=== PATIENT | male | born 1985 | race Two or more races ===

== ENCOUNTER 2020-12-18 19:16 | Emergency (ER) | payer BC ==
[~2020-12-18] VITALS: Ht 170.2 cm; Wt 80.9 kg
[2020-12-18 19:45] VITALS: BP 148/45
[2020-12-18] MEDS ORDERED: IBUPROFEN 400 MG TABLET. PO ONE (21:00)
[2020-12-18] MEDS ORDERED: ACETAMINOPHEN 500 MG TABLET PO ONE (21:00)
[2020-12-18] MEDS ORDERED: SMZ/TMP 800/160MG TABLET. PO ONE (21:00)
--- NOTE | 2020-12-18 21:20 | PHYS DOC ---
Adult General Chief Complaint Chief Complaint: LACERATION/AVULSION HPI HPI Patient is a 35 year old male who denies Past med history presenting emergency department for new onset of left-sided thumb laceration. Patient states this morning is attempting to open a can when he slipped with a small knife and states that he cut inner side of the left thumb. Occurred approximate 9 AM this morning. Has not taken any pain medication. Patient is concerned that he is noted worsening swelling to the area. States he has some numbness in the distal portion of the thumb. Denies any additional injury Review of Systems Review of Systems Constitutional: Denies fever or chills [] Eyes: Denies change in visual acuity, redness, or eye pain [] HENT: Denies nasal congestion or sore throat [] Respiratory: Denies cough or shortness of breath [] Cardiovascular: No additional information not addressed in HPI [] GI: Denies abdominal pain, nausea, vomiting, bloody stools or diarrhea [] : Denies dysuria or hematuria [] Musculoskeletal: Denies back pain or joint pain [] Integument: Denies rash or skin lesions [] Neurologic: Denies headache, focal weakness or sensory changes [] Endocrine: Denies polyuria or polydipsia [] All other systems were reviewed and found to be within normal limits, except as documented in this note. Current Medications Current Medications Current Medications Medications (Trade) Dose Ordered Sig/Hector Start Time Stop Time Status Last Admin Dose Admin Acetaminophen (Tylenol) 1,000 mg 1X ONCE 12/18/20 21:00 4 21:01 UNV Ibuprofen (Motrin) 800 mg 1X ONCE 12/18/20 21:00 12/18/20 21:01 UNV Trimethoprim/ Sulfamethoxazole (Bactrim Ds) 1 tab 1X ONCE 12/18/20 21:00 12/18/20 21:01 UNV Physical Exam Physical Exam Constitutional: Well developed, well nourished, no acute distress, non-toxic appearance. [] HENT: Normocephalic, atraumatic, bilateral external ears normal, oropharynx moist, no oral exudates, nose normal. [] Eyes: PERRLA, EOMI, conjunctiva normal, no discharge. [] Neck: Normal range of motion, no tenderness, supple, no stridor. [] Cardiovascular:Heart rate regular rhythm, no murmur [] Lungs & Thorax: Bilateral breath sounds clear to auscultation [] Abdomen: Bowel sounds normal, soft, no tenderness, no masses, no pulsatile masses. [] Skin: Warm, dry, no erythema, no rash. [] Back: No tenderness, no CVA tenderness. [] Extremities: Small approximate 1 cm laceration to the ventral surface of the left thumb with moderate edema and tenderness over the thenar eminence, no cyanosis, no clubbing, ROM intact, no edema. [] Neurologic: Alert and oriented X 3, normal motor function, normal sensory function, no focal deficits noted. [] Psychologic: Affect normal, judgement normal, mood normal. [] EKG EKG [] Radiology/Procedures Radiology/Procedures [] Course & Med Decision Making Course & Med Decision Making Pertinent Labs and Imaging studies reviewed. (See chart for details) 35-year-old male presenting with a laceration to the left thumb but there is some swelling and tenderness that does raise concern for introduction of an infection or injury to the bone. Will prescribe medications, antibiotics and obtain an x-ray to make sure there is no underlying issue and if this is negative will discharge patient home after laceration repair with a course of antibiotics. Patient eloped from the emergency department before receiving any medications, diagnostic studies or further evaluation and discharge. Dragon Disclaimer Dragon Disclaimer This electronic medical record was generated, in whole or in part, using a voice recognition dictation system. Departure Departure Impression: Primary Impression: Laceration of left thumb Disposition: 07 LEFT AWOL/ELOPED Condition: STABLE Referrals: NO PCP (PCP) DOT MEDRANO MD Dec 18, 2020 21:20
== END 2020-12-18 20:15 | disposition left against medical advice (07) ==
LOC: ER 19:16
DX: S61.012A Laceration without foreign body of left thumb without damage to nail, initial encounter (principal); R60.0 Localized edema; W26.0XXA Contact with knife, initial encounter; Y93.89 Activity, other specified; Y92.89 Other specified places as the place of occurrence of the external cause; Y99.8 Other external cause status
CPT/HCPCS: 99281